=== PATIENT | male | born 2000 | race Caucasian/White ===

== ENCOUNTER 2019-01-26 01:14 | Emergency (ER) | payer OTHER, SELFPAY ==
[2019-01-26 01:15] VITALS: BP 141/70; PULSE 88; RESP 16; TEMP 36.6; O2SAT 99; BMI 20.1
--- NOTE | 2019-01-26 01:50 | CT_ITS ---
We are attempting to reach an attending provider to discuss findings. An addendum with communication details will be sent when the communication is complete. STUDY: CT ABDOMEN AND PELVIS WITH CONTRAST REASON FOR EXAM: Male, 18 years old. Status post fall snowboarding injury. RADIATION DOSAGE (If Supplied By Facility): CTDIvol = ( 11.25 ) mGy, DLP = ( 938.03 ) mGycm TECHNIQUE: Transaxial images were obtained from the dome of the diaphragm to the symphysis pubis without oral contrast. IV Isovue 370 100ml was administered. Sagittal and coronal images were reconstructed. Individualized dose optimization techniques were used for this CT. COMPARISON: None. FINDINGS: Lung bases reveal air trapping versus bullous changes at the left lung base, lingular lobe. Otherwise lung bases are clear. The visualized portions of the heart are within normal limits. Normal liver. Normal gallbladder and extrahepatic biliary system. There is suggestion of a fluid collection surrounding the spleen of approximately 3.1 cm in maximal thickness which may represent a subcapsular hematoma. There are 2 areas of decreased enhancement from the level of the splenic capsule into the deeper soft tissues and noted within the mid lower spleen extending into the splenic tissue approximately 2.5 and 3.7 cm. There is a second area of likely laceration involving the upper aspect of the spleen extending approximately 1.7 cm into the splenic tissue. This combination of findings suggests grade 2 and possibly grade 3 splenic injury. There is no involvement of the splenic hilum or pedicle. Normal pancreas. There is moderate amount of ascites within the abdomen and large amount of ascites within the pelvis. Normal bilateral adrenal glands. Normal right kidney. Normal left kidney. Normal visualized stomach. Normal small intestine. Normal colon. The appendix is visualized and appears normal. Normal abdominal aorta. Normal inferior vena cava. Normal retroperitoneum. Urinary bladder is decompressed. Normal abdominal wall. Normal osseous structures. CT/Abdomen/Pelvis WITH Contrast IMPRESSION: Findings concerning with grade 2 and possibly 3 splenic injury as described above. Ascites. No distinct fracture seen. Electronically Signed: Alyx Mischiu, MD at 3:08 EST , Service support ,
--- NOTE | 2019-01-26 01:50 | CT_ITS ---
STUDY: CT CHEST WITH CONTRAST REASON FOR EXAM: Male, 18 years old. Status post fall snowboarding. History of aortic stenosis with multiple angioplasties. RADIATION DOSAGE (If Supplied By Facility): CTDIvol = ( 11.25 ) mGy, DLP = ( 938.03 ) mGycm TECHNIQUE: Transaxial imaging was performed following intravenous administration of IV Isovue 370 100ml. Multiplanar coronal and sagittal images were reformatted. Individualized dose optimization techniques were used for this CT. COMPARISON: None. FINDINGS: There is focal area of air trapping at the level of the left lung base, lingular lobe. Remainder of the lungs are normal. There is no demonstrated pleural abnormality. Normal heart and pericardium. Normal mediastinum. Normal hilar regions. Normal enhanced pulmonary arteries. Normal aorta arch and descending thoracic aorta. Normal osseous structures. Upper abdomen: There is large amount of ascites. CT/Chest WITH Contrast IMPRESSION: Air trapping involving the left lung base at the lingular lobe otherwise no acute cardiopulmonary process seen. Ascites. Please see accompanying CT of the abdomen and pelvis report. Electronically Signed: Alyx Vaughn MD at 2:56 EST , Service support ,
--- NOTE | 2019-01-26 01:52 | ED.DCSUM_ITS ---
History of Present Illness Chief Complaint: Abd Pain Narrative: Patient is a 18-year-old male who presents with abdominal pain. He was snowboarding underscore morning and fell onto his left side. He initially had chest pain which is sharp and worse with deep breathing. However about 9 PM, about 5 hours ago he began to develop left upper abdominal pain. He now complains of lower abdominal pain and pain along both sides of his abdomen. He also describes this as sharp. He rates it as a 6-7 out of 10. No fever. No diarrhea. At the same time his abdominal pain began he also developed left shoulder pain. He has a history of aortic stenosis. No prior abdominal surgeries. No daily medications. Past Medical History - Allergies and Home Meds Allergies/Adverse Reactions: Allergies No Known Allergies Allergy (Verified 01/26/19 01:18) Primary Care Physician: Calvin Dotson MD [Primary Care Provider] - Past Medical History: - - Aortic stenosis Surgical History: noncontributory Smoking Status: Never smoker Review of Systems All systems negative except as indicated General: Denies: Fever Eyes: Denies: Visual changes - bilaterally ENT: Denies: Sore throat Cardiovascular: Reports: Chest pain Respiratory: Denies: Dyspnea Gastrointestinal: Reports: Abdominal pain Genitourinary: Denies: Dysuria Musculoskeletal: Reports: - - Left shoulder pain Skin: Denies: Rash Neurological: Denies: Headache Physical Exam Vital Signs/Narrative: Vital Signs Temp Pulse Resp BP Pulse Ox 01/26/19 01:15 97.9 F 88 16 141/70 H 99 Inital Vital Signs reviewed: Yes General: Well nourished, Well developed Head: Normocephalic Eyes: EOMI ENT: Moist mucous membranes Neck: Supple Cardiovascular: Regular rate, Regular rhythm Respiratory: No distress, CTA bilaterally, Chest tenderness Abdomen: Soft, Tender, - - Diffuse nonfocal abdominal tenderness, abrasion on the left flank Back: Nontender Extremities: Nontender Skin: Normal color Neurological: Alert, Oriented x3, - - GCS 15 Psychological: Normal affect Diagnostic/Tx/Re-eval Impressions Abdomen/Pelvis CT 01/26/19 01:50 IMPRESSION: Findings concerning with grade 2 and possibly 3 splenic injury as described above. Ascites. No distinct fracture seen. Electronically Signed: Alyx Vaughn MD at 3:08 EST , Service support , Chest CT 01/26/19 01:50 IMPRESSION: Air trapping involving the left lung base at the lingular lobe otherwise no acute cardiopulmonary process seen. Ascites. Please see accompanying CT of the abdomen and pelvis report. Electronically Signed: Alyx Vaughn MD at 2:56 EST , Service support , 01/26/19 01:50 Abdomen/Pelvis WITH Contrast [CT] Stat Chest WITH Contrast [CT] Stat Laboratory Results 01/26/19 01/26/19 01/26/19 01:30 01:30 02:01 WBC 15.7 H RBC 4.15 L Hgb 12.3 L Hct 36.2 L MCV 87.2 MCH 29.6 MCHC 34.0 RDW Std Deviation 40.0 RDW Coeff of Kerrie 12.5 Plt Count 227 MPV 9.9 Immature Gran % (Auto) 0.700 Neut % (Auto) 88.4 H Lymph % (Auto) 6.8 L [place] % (Auto) 3.8 Eos % (Auto) 0.1 Baso % (Auto) 0.2 Absolute Neuts (auto) 13.8 H Absolute Lymphs (auto) 1.07 Nucleated RBC % 0 PT 14.6 INR 1.2 Sodium 141 Potassium 3.8 Chloride 106 Carbon Dioxide 28.0 Anion Gap 7 BUN 13 Creatinine 1.00 Estim Creat Clear Calc 125.00 Est GFR (MDRD) Af Amer 123 Est GFR (MDRD) Non-Af 101 BUN/Creatinine Ratio 13.1 Glucose 131 H Calcium 8.8 Total Bilirubin 0.60 AST 37 ALT 22 Alkaline Phosphatase 46 Total Protein 7.0 Albumin 4.2 Globulin 2.8 Albumin/Globulin Ratio 1.5 - Medical Decision Making Labs and imaging as above. Labs notable for white count of 15.7, hemoglobin 12.3. CT of the chest shows air trapping otherwise unremarkable. CT of the abdomen and pelvis shows a grade 2 possibly grade 3 splenic laceration. Patient is remained hemodynamically stable. He was given morphine and Zofran for symptoms here. Patient was discussed with the emergency physician at [facility] and will be transferred to that facility. ED Disposition - Plan for ED Patient: Disposition: [facility] Diagnosis: Splenic laceration Referrals: Calvin Dotson MD [Primary Care Provider] -
[2019-01-26 02:04] LABS: Absolute Lymphocyte Count 1.07 X10^3/uL (0.83-4.51); Absolute Neutrophil Count 13.8 X10^3/uL (2.0-7.7); Basophil# 0.03 X10^3/uL; Basophil% 0.2 % (0-1); Eosinophil# 0.01 X10^3/uL; Eosinophils% 0.1 % (0-5); Hematocrit 36.2 % (40-54); Hemoglobin 12.3 g/dL (13.0-16.5); Lymphocyte # 1.07 X10^3/ul (4.0); Lymphocyte % 6.8 % (19-41); Mean Corpuscular Hgb 29.6 pg (27.0-32.0); Mean Corpuscular Volume 87.2 fL (80-94); Mean Platelet Vol. 9.9 fl (6.2-12.0); Monocyte# 0.59 X10^3/uL; Monocyte% 3.8 % (0-10); NRBC Flagged by Analyzer 0 % (0-5); Neutrophil # 13.84 X10^3/uL (2.7-7.7); Neutrophil % 88.4 % (47-70); Platelet Count 227 K/mm3 (150-450); RBC Distribution Width CV 12.5 % (11.6-14.6); Red Blood Count 4.15 M/mm3 (4.6-6.2); White Blood Count 15.7 K/mm3 (4.4-11.0)
[2019-01-26] MEDS: Morphine 4 MG/ML Syringe IV (02:05)
[2019-01-26] MEDS: Ondansetron 4 MG/2 ML Vial IV (02:05)
[2019-01-26 02:17] LABS: ALB/GLOB Ratio 1.5 RATIO (0.9-2.4); AST(SGOT) 37 U/L (15-37); Alanine Aminotransfer ALT/SGPT 22 U/L (16-61); Albumin, Serum 4.2 g/dL (3.2-5.0); Alkaline Phosphatase 46 U/L (45-117); Anion Gap 7 (5-15); BUN 13 mg/dL (7-18); BUN/Creat Ratio 13.1 RATIO (10-20); Calcium,Total 8.8 mg/dL (8.5-10.1); Chloride 106 mmol/L (98-107); EST Glomerular Filtration Rate 101 mL/min (>60); Est Glom Filt Rate - Afr Amer 123 mL/min (>60); Globulin 2.8 g/dL (2.2-4.2); Glucose 131 mg/dL (74-106); Potassium 3.8 mmol/L (3.5-5.1); Sodium Level 141 mmol/L (136-145)
[2019-01-26 02:34] LABS: International Normalized Ratio 1.2; Prothrombin Time (Protime)PT. 14.6 SECONDS (11.7-14.9)
[2019-01-26 02:56] VITALS: BP 128/64; PULSE 81; RESP 15; O2SAT 97
[2019-01-26 03:43] VITALS: BP 134/59; PULSE 82; RESP 16; O2SAT 96
[2019-01-26 03:56] VITALS: BP 125/66; PULSE 83; RESP 16; TEMP 36.6; O2SAT 98
== END 2019-01-26 04:17 | disposition short-term general hospital (02) ==
PROVIDERS: Emergency Provider Emergency Medicine; Family Provider Family Medicine; PCP Family Medicine
DX: S36.039A Unspecified laceration of spleen, initial encounter (principal); S30.811A Abrasion of abdominal wall, initial encounter; R18.8 Other ascites; V00.311A Fall from snowboard, initial encounter; Y93.23 Activity, snow (alpine) (downhill) skiing, snowboarding, sledding, tobogganing and snow tubing; Y92.9 Unspecified place or not applicable; Y99.9 Unspecified external cause status; I35.0 Nonrheumatic aortic (valve) stenosis
CPT/HCPCS: 71260; 74177; 80053; 85025; 85610; 96374; 96375; 99283; Q9967; A4216; J2405

== ENCOUNTER 2020-03-29 08:51 | Emergency (ER) | payer OTHER, SELFPAY ==
[2020-03-29 08:53] VITALS: BP 125/64; PULSE 78; RESP 16; TEMP 35.8; O2SAT 98; BMI 20.7
--- NOTE | 2020-03-29 08:58 | RAD_ITS ---
STUDY: X-RAY - LEFT SHOULDER REASON FOR EXAM: Male, 19 years old. INJURED LEFT SHOULDER SNOWBOARDING YESTERDAY, PAIN RAISING ARM TECHNIQUE: 4 view(s) of the shoulder. COMPARISON: None. FINDINGS: Normal glenohumeral articulation. There is no widening of the coracoclavicular distance. There is widening of the AC joint, but without displacement of the clavicle or widening of the coracoclavicular distance, consistent with a Type II acromioclavicular joint separation. Normal acromion. Normal humeral head and visualized proximal humerus. The soft tissue structures are unremarkable. Normal visualized pulmonary apex. RAD/Shoulder min 2 Views IMPRESSION: Type II left AC joint separation. Electronically Signed: Fabrice Hightower MD at 9:32 EST , Service support ,
--- NOTE | 2020-03-29 09:13 | ED.VIS.GEN ---
History of Present Illness Chief Complaint: Upper Extremity Injury Informant: Patient Narrative: 19-year-old male states that yesterday around noon he was snowboarding when he fell landing directly onto the left shoulder. He notes some mild swelling and pain with range of motion. No loss of sensation or motor. He denies any other injuries. Past Medical History - Allergies and Home Meds Allergies/Adverse Reactions: Allergies No Known Allergies Allergy (Verified 03/29/20 08:53) Primary Care Physician: Calvin Dotson MD [Primary Care Provider] - Past Medical History: None Surgical History: noncontributory Smoking Status: Never smoker Alcohol: Occasional Drugs: None Review of Systems General: Denies: Chills, Fever, Sweats Eyes: Denies: Visual changes - bilaterally, Diplopia ENT: Denies: Rhinorrhea, Sore throat Cardiovascular: Denies: Chest pain, Palpitations Respiratory: Denies: Dyspnea, Cough, Dyspnea on exertion Gastrointestinal: Denies: Abdominal pain, Nausea, Vomiting, Diarrhea, Melena, Hematochezia Genitourinary: Denies: Dysuria, Hematuria, Frequency Musculoskeletal: Reports: Extremity Pain. Denies: Back pain Skin: Denies: Rash, Wounds Neurological: Denies: Headache, Weakness, Numbness Physical Exam Vital Signs/Narrative: Vital Signs Temp Pulse Resp BP Pulse Ox 03/29/20 08:53 96.5 F L 78 16 125/64 H 98 Inital Vital Signs reviewed: Yes General: Well nourished, Well developed, No Acute Distress Head: Normocephalic, Atraumatic Eyes: Perrl, EOMI ENT: Moist mucous membranes, No rhinorrhea Neck: Supple, Nontender Cardiovascular: Regular rate, Regular rhythm, No murmurs Respiratory: No distress, CTA bilaterally, Chest nontender Abdomen: Soft, Nontender, Nondistended, Normal bowel sounds Back: Nontender, Normal Inspection Extremities: - - Patient has very localized tenderness and swelling over the left AC joint. No obvious deformities Skin: Normal color, No rash Neurological: Alert, Oriented x3, Cranial nerves II-XII grossly intact, Normal Strength, Normal Sensation Psychological: Normal affect, Normal Mood Diagnostic/Tx/Re-eval Clinical Impression(s) from Imaging Studies Shoulder X-Ray 03/29/20 08:58 IMPRESSION: Type II left AC joint separation. Electronically Signed: Fabrice Hightower MD at 9:32 EST , Service support , - Medical Decision Making My interpretation of the plain films of the right shoulder are AC separation. Radiology reads it as type II AC separation. Patient be treated with a sling. Follow-up is with orthopedics. ED Disposition - Plan for ED Patient: Disposition: Home or Assisted Living Diagnosis: Separation of left acromioclavicular joint, type 2 Instructions: ED Sprain AC Joint Referrals: Dutch Becker DO [STAFF PHYSICIAN] - (call to arrange orthopedic follow up)
[2020-03-29 09:56] VITALS: BP 104/77; PULSE 62; RESP 15; O2SAT 100
== END 2020-03-29 09:57 | disposition home or self-care (01) ==
PROVIDERS: Emergency Provider Emergency Medicine; PCP Family Medicine
DX: S43.102A Unspecified dislocation of left acromioclavicular joint, initial encounter (principal); V00.311A Fall from snowboard, initial encounter; Y93.23 Activity, snow (alpine) (downhill) skiing, snowboarding, sledding, tobogganing and snow tubing; Y92.9 Unspecified place or not applicable; Y99.9 Unspecified external cause status
CPT/HCPCS: 73030; 99283

== ENCOUNTER 2022-11-30 11:22 | Outpatient (RCR) | payer MEDICAID, SELFPAY ==
[2022-11-30 11:59] LABS: International Normalized Ratio 1.6; Prothrombin Time (Protime)PT. 19.3 SECONDS (11.7-14.9)
[2022-11-30 12:00] LABS: Partial Thromboplast Time 31.2 Seconds (24.1-36.2)
== END 2022-11-30 18:00 | disposition home or self-care (01) ==
LOC: LAB 11:22
PROVIDERS: PCP Family Medicine; Visit Provider Nurse Practitioner
DX: Q23.0 Congenital stenosis of aortic valve (principal); Z95.2 Presence of prosthetic heart valve
CPT/HCPCS: 36415; 85610; 85730

== ENCOUNTER 2023-01-01 10:46 | Outpatient (RCR) | payer MEDICAID, SELFPAY ==
[2022-12-04 12:23] LABS: INR Fingerstick 2.2; Prothrombin Time Fingerstick 24.5 SEC (11.7-14.9)
[2022-12-07 10:54] LABS: INR Fingerstick 2.8; Prothrombin Time Fingerstick 30.4 SEC (11.7-14.9)
[2022-12-11 11:24] LABS: INR Fingerstick 2.5; Prothrombin Time Fingerstick 27.5 SEC (11.7-14.9)
[2022-12-25 11:32] LABS: INR Fingerstick 2.4; Prothrombin Time Fingerstick 25.7 SEC (11.7-14.9)
[2023-01-01 10:55] LABS: INR Fingerstick 2.1; Prothrombin Time Fingerstick 23.2 SEC (11.7-14.9)
== END 2023-01-01 18:00 | disposition home or self-care (01) ==
LOC: LAB 10:46
PROVIDERS: PCP Family Medicine; Visit Provider Nurse Practitioner
DX: Q23.0 Congenital stenosis of aortic valve (principal)
CPT/HCPCS: 36416; 85610

== ENCOUNTER 2023-01-22 07:46 | Outpatient (RCR) | payer MEDICAID, SELFPAY ==
[2023-01-15 08:21] LABS: INR Fingerstick 1.9; Prothrombin Time Fingerstick 20.8 SEC (11.7-14.9)
[2023-01-22 07:52] LABS: INR Fingerstick 2.3; Prothrombin Time Fingerstick 25.4 SEC (11.7-14.9)
== END 2023-02-01 18:00 | disposition home or self-care (01) ==
LOC: LAB 07:46
PROVIDERS: PCP Family Medicine; Referring Provider Nurse Practitioner; Visit Provider Nurse Practitioner
DX: Q23.0 Congenital stenosis of aortic valve (principal)
CPT/HCPCS: 36416; 85610

== ENCOUNTER 2023-02-19 07:47 | Outpatient (RCR) | payer MEDICAID, SELFPAY ==
[2023-02-05 07:42] LABS: INR Fingerstick 2.4; Prothrombin Time Fingerstick 26.2 SEC (11.7-14.9)
[2023-02-19 07:54] LABS: Prothrombin Time Fingerstick 21.5 SEC (11.7-14.9)
== END 2023-03-04 18:00 | disposition home or self-care (01) ==
LOC: LAB 07:47
PROVIDERS: PCP Family Medicine; Referring Provider Nurse Practitioner; Visit Provider Nurse Practitioner
DX: Q23.0 Congenital stenosis of aortic valve (principal)
CPT/HCPCS: 36416; 85610

== ENCOUNTER 2023-04-02 10:06 | Outpatient (RCR) | payer MEDICAID, SELFPAY ==
[2023-03-06 08:49] LABS: INR Fingerstick 2.4; Prothrombin Time Fingerstick 26.2 SEC (11.7-14.9)
[2023-03-19 10:55] LABS: INR Fingerstick 2.4; Prothrombin Time Fingerstick 25.9 SEC (11.7-14.9)
[2023-04-02 10:13] LABS: INR Fingerstick 2.2; Prothrombin Time Fingerstick 22.8 SEC (11.7-14.9)
== END 2023-04-02 18:00 | disposition home or self-care (01) ==
LOC: LAB 10:06
PROVIDERS: PCP Family Medicine; Referring Provider Nurse Practitioner; Visit Provider Nurse Practitioner
DX: Q23.0 Congenital stenosis of aortic valve (principal)
CPT/HCPCS: 36416; 85610

== ENCOUNTER 2023-05-01 11:40 | Outpatient (RCR) | payer MEDICAID, SELFPAY ==
[2023-04-17 10:33] LABS: INR Fingerstick 2.6; Prothrombin Time Fingerstick 26.7 SEC (11.7-14.9)
[2023-05-01 11:49] LABS: INR Fingerstick 2.3; Prothrombin Time Fingerstick 23.4 SEC (11.7-14.9)
== END 2023-05-03 18:00 | disposition home or self-care (01) ==
LOC: LAB 11:40
PROVIDERS: PCP Family Medicine; Referring Provider Nurse Practitioner; Visit Provider Nurse Practitioner
DX: Q23.0 Congenital stenosis of aortic valve (principal)
CPT/HCPCS: 36416; 85610

== ENCOUNTER 2023-05-28 08:03 | Outpatient (RCR) | payer MEDICAID, SELFPAY ==
[2023-05-16 08:28] LABS: INR Fingerstick 2.5; Prothrombin Time Fingerstick 25.8 SEC (11.7-14.9)
[2023-05-28 08:10] LABS: INR Fingerstick 2.3; Prothrombin Time Fingerstick 23.6 SEC (11.7-14.9)
== END 2023-06-03 01:11 | disposition home or self-care (01) ==
LOC: LAB 08:03
PROVIDERS: PCP Family Medicine; Referring Provider Nurse Practitioner; Visit Provider Nurse Practitioner
DX: Q23.0 Congenital stenosis of aortic valve (principal)
CPT/HCPCS: 36416; 85610

== ENCOUNTER 2023-06-27 09:24 | Outpatient (RCR) | payer MEDICAID, SELFPAY ==
[2023-06-13 09:36] LABS: INR Fingerstick 2.2; Prothrombin Time Fingerstick 22.5 SEC (11.7-14.9)
[2023-06-27 09:30] LABS: INR Fingerstick 2.1; Prothrombin Time Fingerstick 22.3 SEC (11.7-14.9)
== END 2023-07-03 23:44 | disposition home or self-care (01) ==
LOC: LAB 09:24
PROVIDERS: PCP Internal Medicine; Referring Provider Nurse Practitioner; Visit Provider Nurse Practitioner
DX: Q23.0 Congenital stenosis of aortic valve (principal)
CPT/HCPCS: 36416; 85610

== ENCOUNTER 2023-08-01 09:47 | Outpatient (RCR) | payer MEDICAID, SELFPAY ==
[2023-07-18 12:36] LABS: INR Fingerstick 2.4; Prothrombin Time Fingerstick 24.6 SEC (11.7-14.9)
[2023-08-01 10:03] LABS: INR Fingerstick 1.8; Prothrombin Time Fingerstick 19.2 SEC (11.7-14.9)
== END 2023-08-01 18:00 | disposition home or self-care (01) ==
LOC: LAB 09:47
PROVIDERS: PCP Internal Medicine; Referring Provider Nurse Practitioner; Visit Provider Nurse Practitioner
DX: Q23.0 Congenital stenosis of aortic valve (principal)
CPT/HCPCS: 36416; 85610

== ENCOUNTER 2023-08-29 08:01 | Outpatient (RCR) | payer MEDICAID, SELFPAY ==
[2023-08-15 08:42] LABS: INR Fingerstick 1.9; Prothrombin Time Fingerstick 20.5 SEC (11.7-14.9)
[2023-08-29 08:15] LABS: INR Fingerstick 2.4; Prothrombin Time Fingerstick 24.6 SEC (11.7-14.9)
== END 2023-08-29 18:00 | disposition home or self-care (01) ==
LOC: LAB 08:01
PROVIDERS: PCP Internal Medicine; Referring Provider Nurse Practitioner; Visit Provider Nurse Practitioner
DX: Q23.0 Congenital stenosis of aortic valve (principal)
CPT/HCPCS: 36416; 85610

== ENCOUNTER 2023-09-26 10:08 | Outpatient (RCR) | payer SELFPAY ==
[2023-09-12 07:26] LABS: INR Fingerstick 2.4; Prothrombin Time Fingerstick 24.3 SEC (11.7-14.9)
[2023-09-26 10:17] LABS: Prothrombin Time Fingerstick 30.2 SEC (11.7-14.9)
== END 2023-10-03 18:00 | disposition home or self-care (01) ==
LOC: LAB 10:08
PROVIDERS: PCP Internal Medicine; Referring Provider Nurse Practitioner; Visit Provider Nurse Practitioner
DX: Q23.0 Congenital stenosis of aortic valve (principal)
CPT/HCPCS: 36416; 85610

== ENCOUNTER 2023-10-24 16:54 | Outpatient (RCR) | payer SELFPAY ==
[2023-10-13 07:41] LABS: INR Fingerstick 2.5
[2023-10-24 17:07] LABS: Prothrombin Time Fingerstick 21.3 SEC (11.7-14.9)
== END 2023-10-24 18:00 | disposition home or self-care (01) ==
LOC: LAB 16:54
PROVIDERS: PCP Internal Medicine; Referring Provider Nurse Practitioner; Visit Provider Nurse Practitioner
DX: Q23.0 Congenital stenosis of aortic valve (principal)
CPT/HCPCS: 36416; 85610

== ENCOUNTER 2023-11-21 16:43 | Outpatient (RCR) | payer SELFPAY ==
[2023-11-06 17:14] LABS: INR Fingerstick 2.1; Prothrombin Time Fingerstick 22.4 SEC (11.7-14.9)
[2023-11-21 17:01] LABS: Prothrombin Time Fingerstick 21.1 SEC (11.7-14.9)
== END 2023-11-21 18:00 | disposition home or self-care (01) ==
LOC: LAB 16:43
PROVIDERS: PCP Internal Medicine; Referring Provider Nurse Practitioner; Visit Provider Nurse Practitioner
DX: Q23.0 Congenital stenosis of aortic valve (principal)
CPT/HCPCS: 36416; 85610

== ENCOUNTER 2024-01-02 14:40 | Outpatient (RCR) | payer SELFPAY ==
[2023-12-05 06:35] LABS: INR Fingerstick 1.7; Prothrombin Time Fingerstick 17.9 SEC (11.7-14.9)
[2024-01-02 12:15] LABS: INR Fingerstick 2.4; Prothrombin Time Fingerstick 24.9 SEC (11.7-14.9)
[2024-01-02 14:56] LABS: INR Fingerstick 2.3; Prothrombin Time Fingerstick 24.6 SEC (11.7-14.9)
== END 2024-01-02 18:00 | disposition home or self-care (01) ==
LOC: LAB 14:40
PROVIDERS: PCP Internal Medicine; Referring Provider Nurse Practitioner; Visit Provider Nurse Practitioner
DX: Z95.2 Presence of prosthetic heart valve
CPT/HCPCS: 36416; 85610

== ENCOUNTER 2024-01-16 16:13 | Outpatient (RCR) | payer OTHER, SELFPAY ==
[2024-01-16 16:24] LABS: INR Fingerstick 1.8; Prothrombin Time Fingerstick 20.1 SEC (11.7-14.9)
== END 2024-02-02 18:00 | disposition home or self-care (01) ==
LOC: LAB 16:13
PROVIDERS: PCP Internal Medicine; Referring Provider Nurse Practitioner; Visit Provider Nurse Practitioner
DX: Q23.0 Congenital stenosis of aortic valve (principal)

== ENCOUNTER 2024-02-21 06:06 | Outpatient (RCR) | payer OTHER, SELFPAY ==
[2024-02-06 16:48] LABS: INR Fingerstick 1.2; Prothrombin Time Fingerstick 14.4 SEC (11.7-14.9)
[2024-02-06 17:20] LABS: International Normalized Ratio 1.7; Prothrombin Time (Protime)PT. 19.5 SECONDS (11.7-14.9)
[2024-02-21 06:18] LABS: INR Fingerstick 1.7; Prothrombin Time Fingerstick 19.4 SEC (11.7-14.9)
== END 2024-02-21 18:00 | disposition home or self-care (01) ==
LOC: LAB 06:06
PROVIDERS: PCP Internal Medicine; Referring Provider Nurse Practitioner; Visit Provider Nurse Practitioner
DX: Q23.0 Congenital stenosis of aortic valve (principal)

== ENCOUNTER 2024-03-19 06:21 | Outpatient (RCR) | payer BC, SELFPAY ==
[2024-03-06 06:16] LABS: INR Fingerstick 2.1; Prothrombin Time Fingerstick 22.9 SEC (11.7-14.9)
[2024-03-19 06:31] LABS: INR Fingerstick 2.1; Prothrombin Time Fingerstick 23.4 SEC (11.7-14.9)
== END 2024-03-19 18:00 | disposition home or self-care (01) ==
LOC: LAB 06:21
PROVIDERS: PCP Internal Medicine; Referring Provider Nurse Practitioner; Visit Provider Nurse Practitioner
DX: Z95.2 Presence of prosthetic heart valve
CPT/HCPCS: 36416; 85610

== ENCOUNTER 2024-04-09 16:42 | Outpatient (RCR) | payer BC, SELFPAY ==
[2024-04-10 14:31] LABS: INR Fingerstick 2.1; Prothrombin Time Fingerstick 22.1 SEC (11.7-14.9)
== END 2024-05-02 18:00 | disposition home or self-care (01) ==
LOC: LAB 16:42
PROVIDERS: PCP Internal Medicine; Referring Provider Nurse Practitioner; Visit Provider Nurse Practitioner
DX: Z95.2 Presence of prosthetic heart valve
CPT/HCPCS: 36416; 85610

== ENCOUNTER 2024-10-14 11:27 | Emergency (ER) | payer BC, SELFPAY ==
[2024-10-14 11:28] VITALS: BP 124/76; PULSE 72; RESP 18; TEMP 36.8; O2SAT 100; BMI 20.8
--- NOTE | 2024-10-14 11:46 | EKG12_ITS ---
Test Reason : CP Blood Pressure : */* mmHG Vent. Rate : 73 BPM Atrial Rate : 73 BPM P-R Int : 154 ms QRS Dur : 92 ms QT Int : 382 ms P-R-T Axes : 78 92 74 degrees QTcB Int : 420 ms Sinus rhythm with marked sinus arrhythmia Rightward axis Incomplete right bundle branch block Borderline ECG Confirmed by Dutch Isidro ([id number]), editorial assistant BAM MANUEL ([id number]) on 10/15/2024 9:36:09 AM Referred By: Confirmed By: Dutch Isidro
--- NOTE | 2024-10-14 11:52 | EDS_ITS ---
HPI History of Present Illness Chief Complaint: Chest Pain Detail of Chief Complaint: Right parasternal chest discomfort with swallowing Informant: patient Onset/Context/Timing Onset: Today and Yesterday Activity at onset: sudden Timing: Intermittent Quality: Positive for Pain Location: Right Parasternal Current Severity: Gone Maximum Severity: Moderate Worsened By: Eating (Swallowing) Relieved By: Nothing (Not swallowing) Associated Symptoms: Negative for Nausea, Vomiting, Diaphoresis, Dyspnea, Cough, Fever, Lightheadedness, Acid Reflux or Palpitations Narrative Narrative: Patient is a 24-year-old male. He has a prosthetic pulmonary valve. He is on Coumadin. His level is have been therapeutic. He is to have a level done today. He reports pain with swallowing. He denies heartburn or indigestion. He denies sour eructation. He does not have a history of GERD, peptic ulcers or hiatal hernia. He denies black or maroon-colored stool. He denies intolerance to greasy or fried foods. He denies abdominal pain. Denies back pain. Prior Similar Symptoms: No Recent Illness/Hospitalization: No CVD Risk Factors: Negative for Hypertension, Diabetes, Hypercholesterolemia, Family History 1' </=55 or Smoking PE Risk Factors: Negative for Recent Travel/Surgery, Recent Immobilization, Prior DVT or PE, Cancer or OCP + Smoking + >/=35 TAD Risk Factors: Negative for Marfan's Syndrome, Hypertension or Family History PFSH [facility] Home Medications ?Medication ?Instructions ?Recorded ?Last Taken ?Type pantoprazole 40 mg tablet,delayed 40 mg PO DAILY #30 t abs 10/14/24 Unknown Rx release (Protonix) Allergy/AdvReac Type Severity Reaction Status Date / Time No Known Allergies Allergy Verified 10/14/24 11:30 Surgical History Mechanical heart valve present Social History Smoking Status: Never smoker ROS ROS ED Constitutional Constitutional ED: Denies chills, fever(s) or subjective Eyes Eyes: Reports none ENT ENT ED: Denies ear pain, rhinorrhea or sore throat Cardiovascular Cardiovascular: Reports as per HPI Respiratory/Chest Respiratory/Chest: Denies cough, dyspnea or dyspnea on exertion Gastrointestinal Gastrointestinal: Denies abdominal pain, melena, nausea or vomiting Musculoskeletal Musculoskeletal: Denies back pain Hematologic/Lymphatic Hematologic/Lymphatic: Denies easy bleeding or easy bruising EXAM Physical Exam Const Vital Signs: 10/14/24 11:28 10/14/24 11:45 10/14/24 12:15 Temperature 98.2 F Temperature Source Oral Pulse Rate 72 70 Respiratory Rate 18 13 Respiratory Effort Normal Blood Pressure 124/76 H 112/70 Blood Pressure Mean 92 84 Pulse Ox 100 97 Oxygen Delivery Method Room Air Room Air Positive well nourished and well developed General Appearance ED: well developed and NAD HEENT Reports moist mucous membranes normocephalic and atraumatic Eyes PERRL and EOMs intact bilaterally General Eye ED: Negative for pale conjunctiva or scleral icterus Neck no lymphadenopathy, supple and no JVD Chest Wall inspection of chest normal and palpation of chest normal Resp normal respiratory effort and clear to auscultation bilaterally Cardio regular rate, regular rhythm and no murmurs Peripheral Pulses: pulses 2+ throughout GI normal to inspection, nondistended, normoactive bowel sounds, soft to palpation, non-tender, non-distended and no masses; Negative for hepatosplenomegaly Back/Spine no CVA tenderness Extremity normal to inspection Neuro oriented x3 and CN's II-XII intact bilaterally Psych mental status grossly normal Skin no rashes or lesions noted and no wounds MDM MDM MDM Narrative Medical decision making narrative: EKG was obtained per nurse protocol. Patient history and physical is consistent with GI pathology as his cause of his chest pain suspect GERD. This may represent esophagitis versus reflux versus gastritis fact it hurts when he sw allows most likely esophagitis. Will treat with GI cocktail. If this alleviates his pains no further testing is needed. Treatment and Re-Evaluation :: Patient was reassessed at 1314. He states he had relief for 5 minutes after drinking the GI cocktail. The pain has returned but not as bad. Plan is to discharge on PPI and he has an appointment to see his PCP in 1 week. Discharge Plan Triage Chief Complaint: Chest Pain ED Provider: Damian Zamora Dx/Rx/DC Orders Clinical Impression: Chest pain due to GERD Instructions: ED GERD (Adult) Prescriptions: New pantoprazole [Protonix] 40 mg tablet,delayed release (DR/EC) 40 mg PO DAILY Qty: 30 0RF Primary Care Provider: April Cosme Referrals: Mitra Geronimo DO [Non-Staff] - Keep Parvez appointment Print Language: Indonesian Disposition Disposition: Home, Self Care
[2024-10-14] MEDS: Lidocaine 2% Viscous15 ML UDC 15 ML PO (11:57)
[2024-10-14 12:15] VITALS: BP 112/70; PULSE 70; RESP 13; O2SAT 97
[2024-10-14 13:00] VITALS: BP 122/66; PULSE 78; RESP 14; O2SAT 98
[2024-10-14 13:23] VITALS: BP 137/78; PULSE 66; RESP 12; TEMP 36.8; O2SAT 100
== END 2024-10-14 13:24 | disposition home or self-care (01) ==
PROVIDERS: Emergency Provider Emergency Medicine; PCP Nurse Practitioner Family; Visit Provider Emergency Medicine
DX: R07.9 Chest pain, unspecified (principal); Z79.01 Long term (current) use of anticoagulants; K21.9 Gastro-esophageal reflux disease without esophagitis; Z95.5 Presence of coronary angioplasty implant and graft
CPT/HCPCS: 93005; 99283; A4216

== ENCOUNTER → 2024-11-05 | Outpatient (CLI) | payer BC, SELFPAY ==
--- NOTE | 2024-11-05 08:05 | RAD_ITS ---
EXAM: Air-contrast esophagram barium swallow. CLINICAL HISTORY: One-month history of mid esophageal pain. COMPARISON: None TECHNIQUE: The patient ingested barium. Fluoroscopic imaging of the esophagus was obtained. Dose report: Fluoroscopy: 46 seconds. Radiation dose: 17.3 mGy FINDINGS: The esophagus is unremarkable. No evidence of gastroesophageal reflux. No evidence of obstruction. No filling defect is seen. The patient ingested a 12 mm tablet of barium without any difficulty. RAD/Esophagus Dual Contrast IMPRESSION: Unremarkable air-contrast esophagram barium swallow. Reading Location: [place] [address]
== END | disposition home or self-care (01) ==
LOC: RAD 07:55
PROVIDERS: PCP Nurse Practitioner Family; Referring Provider Nurse Practitioner Family; Visit Provider Nurse Practitioner Family
DX: R13.10 Dysphagia, unspecified (principal)
CPT/HCPCS: 74221